=== PATIENT | male | born 1985 | race Caucasian/White ===

== ENCOUNTER 2018-03-30 10:08 | Day surgery (SDC) | payer BC ==
[~2018-03-30] VITALS: Ht 188 cm; Wt 96.3 kg
[2018-03-30] MEDS ORDERED: IBUP600 PO (10:40)
== END 2018-03-30 13:55 | disposition home or self-care (01) ==
LOC: ORSCSDS 10:08
PROVIDERS: Surgery
PROC: 0HB8XZZ Excision of Buttock Skin, External Approach (ICD-10-PCS; principal; 2018-03-30 11:30)
DX: L05.91 Pilonidal cyst without abscess (principal); F17.210 Nicotine dependence, cigarettes, uncomplicated
CPT/HCPCS: 88304; J0690; J1100; J1885; J2250; J2405; J2765; J3010; J7120